=== PATIENT | male | born 1950 | race Hispanic/Latino ===

== ENCOUNTER 2018-09-05 19:51 | Emergency (ER) | payer MEDICARE ==
[~2018-09-05] VITALS: Ht 172.7 cm; Wt 75.7 kg
[2018-09-05] MEDS ORDERED: SODIUM CHLORIDE 0.9% 500ML 500 ML IV STA (20:06)
[2018-09-05] MEDS ORDERED: CEFTRIAXONE SOD 1 GM VIAL IV ONE (20:45)
[2018-09-05 20:51] LABS: BASOPHILS % 0.2 % (0.0-1.0); HEMOGLOBIN 11.1 g/dL (14.0-18.0); LYMPHOCYTES # (AUTO) 0.7 (1.0-3.2); LYMPHOCYTES % 3.4 % (18.0-39.1); MEAN CORPUSCULAR HEMOGLOBIN 28.9 pg (28-32); MEAN CORPUSCULAR HGB CONC 34.7 g/dL (31-35); MEAN CORPUSCULAR VOLUME 83.3 fL (81-99); MONOCYTES # (AUTO) 0.7 (0.2-0.8); MONOCYTES % 3.4 % (4.4-11.3); NEUTROPHILS # (AUTO) 17.8 (2.1-6.9); NEUTROPHILS % 91.5 % (38.7-80.0); PLATELET COUNT 558 x10e3/uL (140-360); RED BLOOD COUNT 3.84 x10e6/uL (4.3-5.7); RED CELL DISTRIBUTION WIDTH 12.4 % (11.7-14.4)
--- NOTE | 2018-09-05 21:40 | Diagnostic Imaging Report ---
EXAMINATION: CXR 1 VEW - [facility] INDICATION: weakness COMPARISON: None FINDINGS: AP view TUBES and LINES: None. LUNGS: Lungs are well inflated. Lungs are clear. There is no evidence of pneumonia or pulmonary edema. PLEURA: No pleural effusion or pneumothorax. HEART AND MEDIASTINUM: The cardiomediastinal silhouette is unremarkable. BONES AND SOFT TISSUES: No acute osseous lesion. Soft tissues are unremarkable. UPPER ABDOMEN: No free air under the diaphragm. IMPRESSION: No acute thoracic abnormality. Signed by: DR. Flavio Altamirano MD on 09/05/2018 9:37 PM
== END 2018-09-05 21:40 | disposition home or self-care (01) ==
LOC: FSED 19:51
DX: R53.1 Weakness (principal); A41.9 Sepsis, unspecified organism; N30.91 Cystitis, unspecified with hematuria; R35.0 Frequency of micturition; R07.89 Other chest pain; S20.212A Contusion of left front wall of thorax, initial encounter; W18.30XA Fall on same level, unspecified, initial encounter; I10 Essential (primary) hypertension; E11.9 Type 2 diabetes mellitus without complications
CPT/HCPCS: 36415; 71045; 80053; 81003; 82553; 83880; 85025; 87400; 93005; 99284; J0696; J7040

== ENCOUNTER 2019-06-12 | Observation (INO) | payer MEDICARE ==
[2019-06-12] VITALS (8 sets, daily range): BP systolic 118–193; BP diastolic 67–94
[~2019-06-12] VITALS: Ht 170.2 cm; Wt 76.2 kg
--- OUTSIDE RECORDS SUMMARY | 2019-06-12 00:03 | XMS REPORT ---
Author Author [facility] Address Unknown Phone Unavailable Care Team Providers Care Billing Department Supervisor Name Role Phone Jeremy DAVIS Unavailable Unavailable Problems This patient has no known problems. Allergies, Adverse Reactions, Alerts This patient has no known allergies or adverse reactions. Medications This patient has no known medications. Results Test Description Test Time Test Comments Text Results Atomic Results Result Comments CXR 1 [facility] 2018-09-05 21:36:00 [place] [address] Patient Name: REBECCA SMITH MR #: [id number] : 1950 Age/Sex: 68/M Req #: [id number] Adm Physician: Ordered by: PAIGE DAVIS MD Report #: [id number] Location: [facility] Room/Bed: Procedure: [id number] HOPD/CXR 1 [facility] Exam Date: 09/05/18 Exam Time: 2024 REPORT STATUS: Signed EXAMINATION: CXR 1 W - [facility] INDICATION: weakness COMPARISON: None FINDINGS: AP view TUBES and LINES: None. LUNGS: Lungs are well inflated. Lungs are clear. There is no evidence of pneumonia or pulmonary edema. PLEURA: No pleural effusion or pneumothorax. HEART AND MEDIASTINUM: The cardiomediastinal silhouette is unremarkable. BONES AND SOFT TISSUES: No acute osseous lesion. Soft tissues are unremarkable. UPPER ABDOMEN: No free air under the diaphragm. IMPRESSION: No acute thoracic abnormality. Signed by: DR. Flavio Rae MD on 09/05/2018 9:37 PM Dictated By: FLAVIO RAE MD 36 Transcribed By: ELÍAS on 09/05/182136 COPY TO: PAIGE DAVIS MD
[2019-06-12] MEDS ORDERED: ASPIRIN 325 MG TAB ONE (00:27)
[2019-06-12] MEDS ORDERED: NITROGLYCERIN 2% OINT 1 GM PKT ONE (00:27)
[2019-06-12] MEDS ORDERED: ACETAMINOPHEN 325 MG TAB PO ONE (00:30)
[2019-06-12] MEDS ORDERED: FAMOTIDINE 20 MG/2 ML VIAL IV ONE (00:30)
[2019-06-12] MEDS ORDERED: SODIUM CHLORIDE FLUSH 10 ML SYR INJ PRN (00:30)
[2019-06-12] MEDS ORDERED: ASPIRIN 81 MG CHEW TAB PO ONE (00:30)
[2019-06-12] MEDS ORDERED: ONDANSETRON HCL INJ 2MG/ML 2ML 2 MG/ML VIAL IV PRN ×2 (00:30→01:15)
[2019-06-12] MEDS ORDERED: NITROGLYCERIN 2% OINT 1 GM PKT TOP ONE (00:30)
[2019-06-12] MEDS ORDERED: ACETAMINOPHEN 325 MG TAB PO PRN (01:15)
[2019-06-12] MEDS ORDERED: ZOLPIDEM TARTRATE 5 MG TAB PO PRN (01:15)
[2019-06-12] MEDS ORDERED: DIPHENHYDRAMINE HCL INJ 50 MG/ML VIAL IV PRN (01:15)
[2019-06-12] MEDS ORDERED: ENOXAPARIN INJ 80 MG/0.8 ML SYR SC ONE (01:15)
[2019-06-12] MEDS ORDERED: MORPHINE SULFATE 2 MG/ML SYR 1ML IV PRN (01:15)
--- NOTE | 2019-06-12 01:18 | Diagnostic Imaging Report ---
EXAMINATION: CXR 1 [facility] INDICATION: Chest pressure, upper back pain COMPARISON: Chest radiograph 09/05/2018 FINDINGS: TUBES and LINES: None. LUNGS: Lungs are well inflated. Lungs are clear. There is no evidence of pneumonia or pulmonary edema. PLEURA: No pleural effusion or pneumothorax. HEART AND MEDIASTINUM: The cardiomediastinal silhouette is unremarkable. BONES AND SOFT TISSUES: No acute osseous lesion. Soft tissues are unremarkable. Degenerative changes in the spine. UPPER ABDOMEN: No free air under the diaphragm. IMPRESSION: No acute thoracic radiographic abnormality. Signed by: Giovani William DO on 06/12/2019 1:14 AM
[2019-06-12] MEDS: METOPROLOL TARTRATE 25 MG TAB PO SCH ×3 (01:29→20:50)
[2019-06-12] MEDS ORDERED: ENOXAPARIN SODIUM INJ 100 MG/ML SYR SC ONE (01:31)
[2019-06-12] MEDS ORDERED: METOPROLOL TARTRATE 50 MG TAB ONE (01:31)
--- NOTE | 2019-06-12 03:00 | NUR ---
PATIENT AOX4 NO SIGNS OF DISTRESS NOTED. PATIENT IS AMBULATORY AND HEART MONITOR IS ATTACHED AND RUNNING AT SINUS RHYTHM. PATIENT VOICES NO PAIN AND IV IS INTACT AND PATENT. BED IS LOCKED IN LOWEST POSITION, BOTH SIDE RAILS ARE UP, CALL LIGHT WITHIN EASY REACH, WILL CONTINUE TO MONITOR.
[2019-06-12] MEDS: ENALAPRILAT IV INJ 1.25 MG/ML VIAL IV PRN ×2 (06:00→11:58)
--- NOTE | 2019-06-12 06:00 | NUR ---
PAGED DR. MCDONOUGH ABOUT THE PATIENT'S DIET, AWAITING CALL BACK.
[2019-06-12] MEDS: NITROGLYCERIN 2% OINT 1 GM PKT TOP SCH ×3 (06:15→16:15)
--- NOTE | 2019-06-12 07:30 | NUR ---
Pt received in bed. Pt is aox4 and able to verbalize needs. Denies any pain at this time. Breathes are even and unlabored on room air.
[2019-06-12 08:11] LABS: CREATINE KINASE 88 IU/L (30-200)
[2019-06-12] MEDS: LISINOPRIL 10 MG TAB PO SCH (09:04)
[2019-06-12] MEDS: FAMOTIDINE 20 MG TAB PO SCH ×2 (09:04→16:15)
[2019-06-12] MEDS ORDERED: BACITRACIN 50,000 UNIT VIAL IM ONE (09:15)
--- NOTE | 2019-06-12 10:55 | NUR ---
Visit made by the Spiritual Care Department Pastoral Visitor, Denisha Stanton. PV provided prayer, hospitality, and communion. Pastoral Visitor informed pt/family of the scope of [employer] and availability. JAMES SLOAN Infectious Disease Technician Spiritual Care Department O: [phone] Pager: [phone] ([phone] number calling from)
[2019-06-12] MEDS: BACITRACIN ZINC 15 GM OINT TOP SCH (11:44)
--- NOTE | 2019-06-12 13:21 | History and Physical ---
CHIEF COMPLAINT: The patient is a 68-year-old gentleman, who came with chest pain. HISTORY OF PRESENT ILLNESS: A 68-year-old gentleman with a history of diabetes mellitus, hypertension, was in usual state of health until last night about 10 when the patient developed substernal chest pain, radiating to the neck and also to the back. The patient's chest pain lasted until he came to the emergency room, roughly about 1-2 hours. When he came to the emergency room, the patient's chest pain has subsided. The patient has been felt better with nitro patch on. PAST MEDICAL HISTORY: History of hypertension, history of diabetes mellitus, and history of hyperlipidemia. MEDICATIONS: He takes at home are zolpidem at nighttime, Zocor 40 mg, morphine sulfate, lisinopril, famotidine, enalapril, Vasotec, and also simvastatin as mentioned above. PAST SURGICAL HISTORY: History of appendectomy. No other major surgeries noted. SOCIAL HISTORY: No EtOH. No IV drug abuse. No history of smoking. FAMILY HISTORY: Contributory for coronary artery disease and also diabetes. REVIEW OF SYSTEMS: Positive for chest pain. No shortness of breath. No nausea, vomiting, or diarrhea. No constipation. No rectal bleeding. Positive for hyperesthesias and paresthesias in the upper arms and lower extremities. The patient has numbness. The patient recently had suffered a burn on the right index finger, which he has been nursing. PHYSICAL EXAMINATION: VITAL SIGNS: Temperature is 96.7, pulse of 71, respirations of 20, blood pressure is 158/88, pulse oximetry of 98% on room air. HEENT: Normocephalic, atraumatic. Pupils reactive to light and accommodation. CVS: S1 and S2 normal. Regular rate and rhythm. NECK: No JVD present. LUNGS: Clear to auscultation bilaterally. ABDOMEN: Nontender, nondistended. EXTREMITIES: No clubbing, no cyanosis, no edema. Decreased sensation in lower extremities and upper extremities. LABORATORY DATA: Serological data is not available, but troponins were negative the 1st set. IMAGING STUDIES: Chest x-ray shows no acute thoracic abnormalities. The patient's EKG from the free-standing unit and it shows no nonspecific ST-T changes. Laboratory values will be gotten from the free-standing unit, but troponins were negative. ASSESSMENT: 1. A 68-year-old gentleman with history of chest pain. 2. Hypertension. 3. Hyperlipidemia. The patient is admitted for unstable angina. Cardiac consult has been done. Echocardiogram will be done and then hopefully stress test will be done. The patient is on statins, lisinopril, and continue the same medication. Further recommendations per clinical course. Cardiac diet will be started and also wound care for the index finger will be continued. Further recommendations per clinical course and also depending on the cardiac workup. MD YOSI CabralesJ/MODL /[id number]
[2019-06-12 16:42] LABS: CREATINE KINASE 86 IU/L (30-200)
--- NOTE | 2019-06-12 19:05 | NUR ---
Completed bedside report with morning nurse. Pt alert and orient to name. Lying in bed HOB 45 degrees. Denies pain at this time. Call leal within reach. Will continue to monitor.
[2019-06-12 20:12] LABS: CHOL/HDL RATIO 2.4 (3.9-4.7)
--- NOTE | 2019-06-12 20:58 | Consultation ---
DATE OF CONSULTATION: 06/12/2019 Cardiology Consultation REQUESTING PHYSICIAN: Rodo Long MD REASON FOR CONSULTATION: Chest pain. HISTORY OF PRESENT ILLNESS: This is a 68-year-old man with history of diabetes mellitus, hypertension, hyperlipidemia, who presents with complaints of chest pain. The patient reports he began having chest pressure with radiation to the back last night. He states this is 8/10 in severity associated with shortness of breath. There was no nausea or diaphoresis. He stated he did have pain a few days prior as well, but did not seek medical attention at that time. He denied any edema, orthopnea, or PND. REVIEW OF SYSTEMS: Negative except as per HPI. PAST MEDICAL HISTORY: Diabetes mellitus, hypertension, hyperlipidemia. PAST SURGICAL HISTORY: Appendectomy. ALLERGIES: PLEASE SEE EMR. MEDICATIONS: Please see medication list. SOCIAL HISTORY: Denies alcohol or illicit drug use. Has a history of prior tobacco use, but quit in 1985. FAMILY HISTORY: Reportedly positive for coronary artery disease. PHYSICAL EXAMINATION: VITAL SIGNS: Temperature 97.8 degrees, pulse 77, respiratory rate 17, blood pressure 170/80, and oxygen saturation 98%. GENERAL: Well-developed, well-nourished man, in no acute distress. HEENT: Normocephalic, atraumatic. Pupils equal. No scleral icterus. NECK: Supple. No thyromegaly or cervical lymphadenopathy. No carotid bruits. LUNGS: Clear to auscultation bilaterally. No wheezes or crackles. CARDIOVASCULAR: Normal rate. Regular rhythm. No murmur. Normal S1, S2. ABDOMEN: Soft, nontender. EXTREMITIES: No edema. NEUROLOGIC: Nonfocal exam. LABORATORY DATA: Troponin less than 0.001. EKG normal sinus rhythm, normal ECG. Chest x-ray, no acute thoracic radiographic abnormality. IMPRESSION: 1. Chest pain. 2. Hypertension. 3. Hyperlipidemia. 4. Diabetes mellitus. RECOMMENDATIONS: 1. The patient is ruled out for myocardial infarction with serial cardiac biomarkers. Echocardiogram demonstrated normal LV size with mild concentric LVH and impaired relaxation. Given risk factors, plan to proceed with evaluation with nuclear stress test. Further recommendations pending test results. 2. Monitor the patient on telemetry. 3. Check fasting lipid panel. 4. Resume home antihypertensive therapies. 5. Likely to need further titration of blood pressure medication. Thank you for this consult. We will continue to follow. MD BREE Elizabeth/LUCHO /[id number]
[2019-06-12] MEDS ORDERED: METFORMIN HCL500 MG PO (21:00)
[2019-06-12] MEDS ORDERED: SIMVASTATIN 40 MG TAB PO SCH (21:00)
[2019-06-13] VITALS (7 sets, daily range): BP systolic 140–195; BP diastolic 66–91
[2019-06-13] MEDS: NITROGLYCERIN 2% OINT 1 GM PKT TOP SCH ×4 (05:46→17:39)
--- NOTE | 2019-06-13 07:28 | NUR ---
Pt received in bed with eyes open. Pt is aox4 and able to verbalize needs. Denies any pain at this time. Pt is NPO at this time for stress test. Dr. Long was here this am to see pt and states that pt can discharge if stress is normal. He is to continue with same home medications for discharge.
[2019-06-13] MEDS: METOPROLOL TARTRATE 25 MG TAB PO SCH (07:55)
--- NOTE | 2019-06-13 08:06 | Progress Note ---
DATE: SUBJECTIVE: The patient is a 68-year-old gentleman with history of diabetes mellitus, hypertension, came with hypertensive crisis and also chest pain. Currently, the patient is feeling better, little stressed about the stress test to happen today. Echocardiogram showed diastolic dysfunction, EF of 50% to 60%. Diastolic filling pattern indicates impaired relaxation. OBJECTIVE: VITAL SIGNS: Temperature is 97.0, respirations of 20, pulse of 68, blood pressure 160/82, pulse oximetry of 97% on room air. HEENT: Normocephalic, atraumatic. Pupils reactive to light and accommodation. CVS: S1 and S2 normal. Regular rate and rhythm. ABDOMEN: Nontender, nondistended. EXTREMITIES: No clubbing, no cyanosis, no edema. LABORATORY VALUES: Triglycerides 191, LDL was 35, HDL was 52 with a ratio of 2.4. Hemoglobin A1c was 5.5 and TSH of 1.89. ASSESSMENT: A 68-year-old gentleman with: 1. Hypertensive crisis. 2. Chest pain. 3. Hyperlipidemia. 4. History of diabetes mellitus, impaired fasting glucose tolerance. 5. History of anxiety. PLAN: Continue with treadmill. Plan today, the patient can be discharged if the treadmill is negative. Up titrate the blood pressure medications and continue with his antidiabetic medications at this time. Further recommendation per clinical course. We will continue to monitor the patient. MD ARRON Cabrales/LUIS EL /[id number]
[2019-06-13] MEDS: FAMOTIDINE 20 MG TAB PO SCH ×2 (08:22→17:54)
[2019-06-13] MEDS: LISINOPRIL 10 MG TAB PO SCH (08:23)
[2019-06-13] MEDS: BACITRACIN ZINC 15 GM OINT TOP SCH (09:00)
[2019-06-13] MEDS ORDERED: REGADENOSON 0.4 MG/5 ML SYR IV ONE (10:08)
[2019-06-13] MEDS: ENALAPRILAT IV INJ 1.25 MG/ML VIAL IV PRN (10:38)
--- NOTE | 2019-06-13 11:47 | NUR ---
Pt BP is 187/83 on the dinamap and 190/[address] Peña to let her know of elevated blood pressure and waiting for call back. Called and spoke with better. and let them know aswell. [facility] states they will call Dr. Peña and try to get orders aswell. [employer] was able to speak with Dr. Peña and states its ok to do stress test but they will change to chemical instead of treadmill.
[2019-06-13] MEDS ORDERED: LISINOPRIL40 MG PO (15:40)
[2019-06-13] MEDS ORDERED: PRAVASTATIN SOD40 MG PO (15:40)
[2019-06-13] MEDS ORDERED: AMLODIPINE BESY10 MG PO (15:40)
[2019-06-13] MEDS ORDERED: LOSARTAN POTAS100 MG PO (15:40)
[2019-06-13] MEDS ORDERED: CLONIDINE HCL0.1 MG PO (15:40)
[2019-06-13] MEDS ORDERED: ONDANSETRON HCL 4 MG ORAL DISINTEGRATING TAB PO PRN (16:30)
--- NOTE | 2019-06-13 17:03 | Myoview Stress Test ---
DATE OF STUDY: 06/12/2019 13:42:00 Stress Test - Treadmill ONLY PROCEDURE TITLE: Rest/stress single isotope SPECT imaging with pharmacologic stress and gated SPECT imaging. INDICATION: Chest pain. PROCEDURE IN DETAIL: Pharmacologic stress testing was performed with regadenoson per protocol. The heart rate was 66 beats per minute at rest and increased to 109 beats per minute during the regadenoson infusion. Resting blood pressure was 159/86 mmHg and increased to 166/75 mmHg, which is a normal response. Resting electrocardiogram demonstrated normal sinus rhythm. There were diffuse ST-segment depressions noted during the regadenoson infusion. Myocardial perfusion imaging was performed at rest following the injection of 11 mCi of tetrofosmin. At peak pharmacological effect, the patient was injected with 33 mCi of tetrofosmin. Gated post-stress tomographic imaging was performed. FINDINGS: The overall quality of study is fair. Left ventricular cavity is noted to be normal size on the rest and stress studies. SPECT images demonstrate homogeneous tracer distribution throughout the myocardium. Gated SPECT imaging reveals normal myocardial thickening and wall motion. The left ventricular ejection fraction was calculated to be greater than 70%. IMPRESSION: Myocardial perfusion imaging is normal false-positive Lexiscan ECG stress test in light of normal perfusion imaging. Overall left ventricular systolic function was normal without regional wall motion abnormalities. Molly Arnett MD ABS/MODL /[id number]
[2019-06-13] MEDS ORDERED: CLONIDINE HCL 0.1 MG TAB PO SCH (18:00)
[2019-06-13] MEDS ORDERED: LOSARTAN POTASSIUM 100 MG TAB PO SCH (18:00)
[2019-06-13] MEDS ORDERED: AMLODIPINE BESYLATE 10 MG TAB PO SCH (18:00)
--- NOTE | 2019-06-13 18:40 | NUR ---
Spoke with Dr. Long this afternoon to restart blood pressure medications from home and to give dose right now. Dr. Brandon here to see pt and states that stress test was negative and pt is able to go home if Blood pressure is ok. He is to continue same home medications and follow up with PCP in one week.
--- NOTE | 2019-06-13 19:05 | NUR ---
Report received from morning nurse. Pt sitting in chair awaiting discharge instructions. Informed to call transportation to take him home. Denies pain at this time. Call leal within reach.
--- NOTE | 2019-06-13 20:00 | NUR ---
Pt transported to vehicle via w/c. 18g IV removed right FA, Pt tolerated well. Pt received discharge instructions. Pt/family verbalized understanding. Pt denies pain at this time. No acute distress noted.
--- NOTE | 2019-06-14 02:06 | Progress Note ---
DATE: 06/13/2019 Cardiology Progress Note SUBJECTIVE: The patient denies chest pain or shortness of breath. He was seen for nuclear stress test. OBJECTIVE: VITAL SIGNS: Temperature 97 degrees, pulse 62, respiratory rate 17, blood pressure 187/80, and oxygen saturation 97%. GENERAL: Awake, alert, in no acute distress. LUNGS: Clear to auscultation bilaterally. No wheezes or crackles. CARDIOVASCULAR: Normal rate. Regular rhythm. No murmur. Normal S1, S2. ABDOMEN: Soft, nontender. EXTREMITIES: No edema. CARDIAC MEDICATIONS: Losartan 100 mg p.o. daily, amlodipine 10 mg p.o. daily, lisinopril 10 mg p.o. daily, metoprolol tartrate 25 mg p.o. q.12 hours. LABORATORY DATA: None today. TELEMETRY: Normal sinus rhythm IMPRESSION: 1. Chest pain. 2. Hypertension. 3. Hyperlipidemia. 4. Diabetes mellitus. RECOMMENDATIONS: The patient is ruled out for myocardial infarction with serial cardiac biomarkers. Nuclear stress test was without evidence of ischemia. Resume home blood pressure medications. However, it appears he is on both lisinopril and losartan. We would recommend discontinuation of lisinopril at this time and addition of carvedilol for a blood pressure control. This can be further adjusted without antihypertensive therapy as an outpatient. Thank you for this consult. We will continue to follow. Molly Arnett MD ABS/MODL /[id number]
[2019-06-14] MEDS ORDERED: METFORMIN HCL 500 MG TAB PO SCH (09:00)
== END 2019-06-13 20:00 | disposition home or self-care (01) ==
LOC: FSED → ERHOLD 00:20 → MED/SURG3 01:45
PROVIDERS: ADMIT Family Medicine; ATTEND Family Medicine
DX: R07.89 Other chest pain (principal); I10 Essential (primary) hypertension; E11.9 Type 2 diabetes mellitus without complications; E78.5 Hyperlipidemia, unspecified; Z87.891 Personal history of nicotine dependence; Z83.3 Family history of diabetes mellitus; Z82.49 Family history of ischemic heart disease and other diseases of the circulatory system; I16.9 Hypertensive crisis, unspecified; F41.9 Anxiety disorder, unspecified; Z79.84 Long term (current) use of oral hypoglycemic drugs
CPT/HCPCS: 36415 ×2; 71045; 78452; 80048; 80061; 80076; 82550; 82553; 82948 ×2; 83036; 83690; 84443; 84484; 85025; 93005; 93017; 93306; 99284; A9502; G0378 ×2; J1650; J2785

== ENCOUNTER → 2019-10-16 | Day surgery (SDC) | payer MEDICARE ==
[2019-10-15 13:04] LABS: BASOPHILS # (AUTO) 0.1 (0.0-0.1); BASOPHILS % 0.7 % (0.0-1.0); EOSINOPHILS # (AUTO) 0.1 (0.0-0.4); EOSINOPHILS % 0.9 % (0.0-6.0); HEMATOCRIT 38.1 % (38.2-49.6); HEMOGLOBIN 13.4 g/dL (14.0-18.0); LYMPHOCYTES # (AUTO) 2.4 (1.0-3.2); MEAN CORPUSCULAR HEMOGLOBIN 30.2 pg (28-32); MEAN CORPUSCULAR HGB CONC 35.2 g/dL (31-35); MEAN CORPUSCULAR VOLUME 85.8 fL (81-99); MONOCYTES # (AUTO) 0.6 (0.2-0.8); NEUTROPHILS # (AUTO) 5.8 (2.1-6.9); PLATELET COUNT 280 x10e3/uL (140-360); RED BLOOD COUNT 4.44 x10e6/uL (4.3-5.7); RED CELL DISTRIBUTION WIDTH 12.4 % (11.7-14.4)
[~2019-10-16] MED LIST: AMLODIPINE BESY10 MG PO; CLONIDINE HCL0.1 MG PO; FENTANYL CITRATE/PF 100MCG/2 ML INJ ONE; FLOMAX0.4 MG PO; LISINOPRIL40 MG PO; LOSARTAN POTAS100 MG PO; METFORMIN HCL500 MG PO; MIDAZOLAM HCL 2 MG/2 ML VIAL ONE; PRAVASTATIN SOD40 MG PO; PROPOFOL IV EMULSION 10 MG/ML 20 ML VIAL ONE
[2019-10-16 12:35] VITALS: BP 106/75
--- NOTE | 2019-10-16 19:08 | Operative Report ---
DATE OF PROCEDURE: SURGEON: Mayito Waldrop MD PROCEDURES: Flexible sigmoidoscopy with piecemeal polypectomy, hot biopsies, and hemoclipping x3 of rectal lesion. INDICATIONS FOR PROCEDURE: History of rectal lesion with high-grade dysplasia. MEDICATIONS: The patient was done under MAC, please see anesthesiologist's note. PROCEDURE IN DETAIL: With the patient in the left lateral decubitus position, a flexible fiberoptic Olympus colonoscope was introduced into the anus and advanced to the proximal rectum. An approximately 1.8 cm the previously described sessile lesion was identified and it was removed per piecemeal electrocautery and hot biopsy forceps. Polypectomy site was then hemoclipped x3 with excellent hemostasis. The scope was then retroflexed into the distal rectum and small internal hemorrhoids were noted, none of which was actively bleeding. The scope was then straightened out, it was subsequently withdrawn, and the patient tolerated the procedure well. IMPRESSION: 1. Approximately 1.8 cm sessile lesion in proximal rectum removed per piecemeal polypectomy, hot biopsy forceps, site hemoclipped x3. 2. Internal hemorrhoids, none actively bleeding. PLAN: Follow up histology. If margins of lesion are not clear, then the patient will need a transanal excision. Mayito Waldrop MD [facility]/MODL /[id number] cc: MD Sonido Caldera MD
== END | disposition home or self-care (01) ==
LOC: ENDO 09:24
PROVIDERS: ATTEND Internal Medicine Gastroenterology
DX: D12.8 Benign neoplasm of rectum (principal); K63.5 Polyp of colon; K57.30 Diverticulosis of large intestine without perforation or abscess without bleeding; K64.8 Other hemorrhoids; I10 Essential (primary) hypertension; E11.9 Type 2 diabetes mellitus without complications; K21.9 Gastro-esophageal reflux disease without esophagitis; E78.00 Pure hypercholesterolemia, unspecified; Z87.891 Personal history of nicotine dependence; Z01.810 Encounter for preprocedural cardiovascular examination; Z01.812 Encounter for preprocedural laboratory examination
CPT/HCPCS: 36415 ×2; 45333; 82948; 85025; 93005; J2250; J2704; J3010; 45330

== ENCOUNTER → 2020-02-03 | Day surgery (SDC) | payer MEDICARE, OTHER ==
[2020-01-30 13:56] LABS: BASOPHILS % 0.4 % (0.0-1.0); EOSINOPHILS # (AUTO) 0.1 (0.0-0.4); EOSINOPHILS % 0.6 % (0.0-6.0); HEMATOCRIT 37.1 % (38.2-49.6); LYMPHOCYTES # (AUTO) 1.7 (1.0-3.2); LYMPHOCYTES % 21.8 % (18.0-39.1); MEAN CORPUSCULAR HEMOGLOBIN 30.2 pg (28-32); MEAN CORPUSCULAR VOLUME 86.3 fL (81-99); MONOCYTES # (AUTO) 0.6 (0.2-0.8); MONOCYTES % 7.7 % (4.4-11.3); NEUTROPHILS # (AUTO) 5.3 (2.1-6.9); NEUTROPHILS % 69.2 % (38.7-80.0); PLATELET COUNT 244 x10e3/uL (140-360); RED CELL DISTRIBUTION WIDTH 12.6 % (11.7-14.4)
[~2020-02-03] MED LIST changes: +EPHEDRINE SULFATE INJ 50 MG/ML VIAL ONE; +HYOSCYAMINE 0.125 MG TAB ONE; -MIDAZOLAM HCL 2 MG/2 ML VIAL ONE
--- NOTE | 2020-02-03 15:53 | Operative Report ---
DATE OF PROCEDURE: 02/03/2020 SURGEON: Mayito Waldrop MD PROCEDURE: Flexible sigmoidoscopy with polypectomy and biopsies. INDICATIONS FOR PROCEDURE: History of polypoid lesion, proximal rectum with high-grade dysplasia. MEDICATIONS: The patient was done under MAC, please see anesthesiologist's note. PROCEDURE IN DETAIL: With the patient in left lateral decubitus position, a flexible fiberoptic Olympus colonoscope was inserted into the rectum with ease and advanced to the proximal rectum. Previous polypectomy site was noted and that was biopsied. A minute residual polypoid lesion was also noted just adjacent to the polypectomy site that was removed per snare electrocautery. The scope was then withdrawn back into the distal rectum, retroflexed and some small internal hemorrhoids were noted, none of which was actively bleeding. The scope was then straightened out, it was subsequently withdrawn. The patient tolerated the procedure well. The procedure was done in the presence of Dr. Richmond Nash. IMPRESSION: 1. Residual polypoid tissue, hot snared. 2. Previous polypectomy site, biopsied. 3. Internal hemorrhoids, none actively bleeding. PLAN: Follow up histology. If histology is still consistent with dysplasia, the patient will undergo a transanal excision of the aforementioned lesion. Timing of followup colonoscopy pending pathology report. Mayito Waldrop MD [facility] /[id number] cc: MD Richmond Smith MD
[2020-02-03 15:55] VITALS: BP 146/81
== END | disposition home or self-care (01) ==
LOC: OR 12:30
PROVIDERS: ATTEND Internal Medicine Gastroenterology
DX: K62.89 Other specified diseases of anus and rectum (principal); K62.1 Rectal polyp; K64.8 Other hemorrhoids; K21.9 Gastro-esophageal reflux disease without esophagitis; E11.9 Type 2 diabetes mellitus without complications; I10 Essential (primary) hypertension; Z88.6 Allergy status to analgesic agent; Z01.810 Encounter for preprocedural cardiovascular examination; Z01.812 Encounter for preprocedural laboratory examination; Z11.59 Encounter for screening for other viral diseases
CPT/HCPCS: 36415 ×2; 45380; 45385; 82948; 85025; 87635; 88305; 93005; J2704; J3010; 45330

== ENCOUNTER 2020-03-23 13:02 | Emergency (ER) | payer MEDICARE, OTHER ==
[~2020-03-23] VITALS: Ht 170.2 cm; Wt 65.5 kg
[~2020-03-23 13:02] MED LIST changes: -EPHEDRINE SULFATE INJ 50 MG/ML VIAL ONE; -FENTANYL CITRATE/PF 100MCG/2 ML INJ ONE; -HYOSCYAMINE 0.125 MG TAB ONE; -PROPOFOL IV EMULSION 10 MG/ML 20 ML VIAL ONE
[2020-03-23] MEDS ORDERED: LOSARTAN-HCTZ1 EAC1 (13:25)
[2020-03-23] MEDS ORDERED: NIFEDIPINE ER30 M1 (13:25)
--- OUTSIDE RECORDS SUMMARY | 2020-03-23 13:37 | XMS REPORT | Continuity of Care Document ---
Author Author [facility] t Organization [facility] Address [address] [place] [address] Phone Unavailable Care Team Providers Care Social Insurance Administrator Name Role Phone LESLI CARR MD PCP Maru MCDONOUGH Attphys Unavailable Jeremy DAVIS Attphys Unavailable aMru MCDONOUGH Admphys Unavailable Payers Payer Name Policy Type Policy Number Effective Date Expiration Date Maru mata [employer] Medicare Replacement [id number] 2018 00:00:00 [facility] Well[employer] Medicare Advantage [id number] 2018 00:00:00 [facility] Problems Condition Name Condition Details Condition Category Status Onset Date Resolution Date Last Treatment Date Treating Clinician Comments Source Acute coronary syndrome Acute coronary syndrome Problem Active [facility] Hypertensive urgency Hypertensive urgency Problem Active [facility] Allergies, Adverse Reactions, Alerts This patient has no known allergies or adverse reactions. Medications Ordered Medication Name Filled Medication Name Start Date Stop Da te Current Medication? Ordering Clinician Indication Dosage Frequency Signature (SIG) Comments Components Source Amlodipine Besylate 10 Mg Tablet Amlodipine Besylate 10 Mg Tablet Yes 10 Daily [facility] Clonidine Hcl 0.1 Mg Tablet Clonidine Hcl 0.1 Mg Tablet Yes 1 Twice A Day [facility] Lisinopril 40 Mg Tablet Lisinopril 40 Mg Tablet Yes Daily [facility] Losartan Potassium 100 Mg Tablet Losartan Potassium 100 Mg Tablet Yes 100 Daily [facility] Metformin Hcl 500 Mg Tablet Metformin Hcl 500 Mg Tablet Yes 500 Twice A Day [facility] Pravastatin Sodium 40 Mg Tablet Pravastatin Sodium 40 Mg Tablet Yes Daily [facility] Procedures This patient has no known procedures. Encounters Start Date/Time End Date/Time Encounter Type Admission Type [facility] Care Department Encounter ID Source 2019-06-12 00:20:00 2019-06-13 20:00:00 Discharged Inpatient (obs) 1 TEENA MCDONOUGH [facility] [id number] [facility] 2018-09-05 19:51:00 2018-09-05 21:40:00 Departed Emergency Room 1 PAIGE DAVIS [facility] [id number] [facility] Results Test Description Test Time Test Comments Results Result Comments Source Stress Test - Treadmill ONLY 2019-06-13 14:28:00 [place] [address] Patient Name : REBECCA SMITH MR #: [id number] : 1950 Age/Sex: 68/M Adm Physician : TEENA MCDONOUGH MD Admit Date : 06/12/19 Location : MED/SURG3 Room/Bed : [facility] REPORT: Myoview Stress Test DATE OF STUDY: 06/12/2019 13:42:00 Stress Test - Treadmill ONLY PROCEDURE TITLE: Rest/stress single isotope SPECT imaging with pharmacologic stress and gated SPECT imaging. INDICATION: Chest pain. PROCEDURE IN DETAIL: Pharmacologic stress testing was performed with regadenoson per protocol. The heart rate was 66 beats per minute at rest and increased to 109 beats per minute during the regadenoson infusion. Resting blood pressure was 159/86 mmHg and increased to 166/75 mmHg, which is a normal response. Resting electrocardiogram demonstrated normal sinus rhythm. There were diffuse ST-segment depressions noted during the regadenoson infusion. Myocardial perfusion imaging was performed at rest following the injection of 11 mCi of tetrofosmin. At peak pharmacological effect, the patient was injected with 33 mCi of tetrofosmin. Gated post-stress tomographic imaging was performed. FINDINGS: The overall quality of study is fair. Left ventricular cavity is noted to be normal size on the rest and stress studies. SPECT images demonstrate homogeneous tracer distribution throughout the myocardium. Gated SPECT imaging reveals normal myocardial thickening and wall motion. The left ventricular ejection fraction was calculated to be greater than 70%. IMPRESSION: Myocardial perfusion imaging is normal. False- positive Lexiscan ECG stress test in light of normal perfusion imaging. Overall left ventricular systolic function was normal without regional wall motion abnormalities. Molly Arnett MD ABS/LUCHO /[id number] Signature Date Dictated By: MOLLY ARNETT MD Transcribed By: MODL on 06/13/19 <Electronically signed by MOLLY ARNETT MD><<Signature on File>>06/30/19 [id number] COPY TO: Bedside Glucose 2019-06-13 07:27:00 Test Item Bedside Glucose (test code = 32891-7) 106 70-120 Meter ID: [id number]neyTriglycerides Level 2019-06-12 20:14:00* Test Item Value Reference Range Interpretation Comments Triglycerides Level (test code = 2571-8) 191 0-149 H [facility]neyCholesterol Bpkqv7313-99-01 20:14:00* Test Item Value Reference Range Interpretation Comments Cholesterol Level (test code = 2093-3) 125 0-199 Less than 200 mg/dL Low Drlm946 - 239 mg/dL Borderline Tczx034 m g/dl and greater High Risk [facility] McKinneyLDL Foyrpngatwa8193-84-08 20:14:00* Test Item Value Reference Range Interpretation Comments LDL Cholesterol (test code = 2089-1) 35 60-130 L [facility] McKinneyHDL Qqspyazhpiu0464-88-83 20:14:00* Test Item Value Reference Range Interpretation Comments HDL Cholesterol (test code = 2085-9) 52 40-60 [facility]neyCholesterol/HDL Pmnga4042-26-24 20:14:00 * Test Item Value Reference Range Interpretation Comments Cholesterol/HDL Ratio (test code = 9830-1) 2.4 3.9-4.7 L [facility] McKinneyCreatine Kinase [id number] 16:55:00* Test Item Value Reference Range Interpretation Comments Creatine Kinase MB (test code = 95046-9) 2.40 0-5.0 [facility] McKinneyTroponin [id number] 16:55:00* Test Item Value Reference Range Interpretation Comments Troponin I (test code = VZM3649) < 0.001 0-0.300 [facility]neyCreatine Skythc9673-83-56 16:43:00* Test Item Value Reference Range Interpretation Comments Creatine Kinase (test code = 2157-6) 86 30-200 [facility] McKinneyThyroid Stimulating Hormone (TSH) 2019-06-12 09:20:00* Test Item Value Reference Range Interpretation Comments Thyroid Stimulating Hormone (TSH) (test code = 08675-2) 1.899 0.350-4.940 [facility] McKinneyHemoglobin A1c Cdlrlkb4764-77-33 08:26:00 * Test Item Value Reference Range Interpretation Comments Hemoglobin A1c Percent (test code = Hemoglobin A1c Percent) 5.5 4.0-7.0 [facility] McKinneyLipase2019-10-30 08:26:00* Test Item Value Reference Range Interpretation Comments Lipase (test code = 3040-3) 51 8-78 [facility]neyCXR 1 VEW - IKYE6903-18-18 01:13:00 [place] [address] Patient Name: REBECCA SMITH MR #: [id number] : 1950 Age/Sex: 68/M Req #: [id number] Adm Physician: TEENA MCDONOUGH MD Ordered by: PAIGE DAVIS MD Report #: [id number] Location: [facility] Room/Bed: [facility]-1 Procedure: [id number] HOP D/CXR 1 VEW - HOPD Exam Date: 06/12/19 Exam Time: 00 25 REPORT STATUS: Signed EXAMINA TION: CXR 1 [facility] INDICATION: Chest pressure, upper back pain COMPARISON: Chest radiograph 09/05/2018 FINDINGS: TUBES and LINE S: None. LUNGS: Lungs are well inflated. Lungs are clear. There is no e vidence of pneumonia or pulmonary edema. PLEURA: No pleural effusion or pneumothorax. HEART AND MEDIASTINUM: The cardiomediastinal silhouette is u nremarkable. BONES AND SOFT TISSUES: No acute osseous lesion. Soft ti ssues are unremarkable. Degenerative changes in the spine. UPPER ABDOMEN: No free air under the diaphragm. IMPRESSION: No acute thoracic r adiographic abnormality. Signed by: Giovani William DO on 06/12/2019 1:14 A M Dictated By: GIOVANI WILLIAM DO 3 Transcribed By: ELÍAS on 06/12/19113 COPY T O: PAIGE DAVIS MD CXR 1 [facility] - [id number] 21:36:00 [place] [address] Patient Name: REBECCA SMITH MR #: [id number] : 1950 Age/Sex: 68/M Req #: [id number] Adm Physician: Ordered by: PAIGE DAVIS MD Report #: [id number] Location: [facility] Room/Bed: Procedure: [id number] HOPD/ CXR 1 VEW - HOPD Exam Date: 09/05/18 Exam Time: 2024 REPORT STATUS: Signed EXAMINATI ON: CXR 1 VEW - HOPD INDICATION: weakness COMPARISON: None FINDINGS: AP view TUBES and LINES: None. LUNGS: Lungs are well inflated. Lungs are clear. There is no evidence of pneumonia or pulmo nary edema. PLEURA: No pleural effusion or pneumothorax. HEART AND ME DIASTINUM: The cardiomediastinal silhouette is unremarkable. BONES AND SOFT TISSUES: No acute osseous lesion. Soft tissues are unremarkable. UPPER ABDOMEN: No free air under the diaphragm. IMPRESSION: No acute thoracic abnormality. Signed by: DR. Flavio Rae MD on 09/05/2018 9:37 PM Dictated By: FLAVIO RAE MD 36 Transcribed By: ELÍAS on 09/05/182136 COPY TO: PAIGE DAVIS MD White Blood Epvln3252-94-68 20:57:00* Test Item Value Reference Range Interpretation Comments White Blood Count (test code = 6690-2) 19.47 4.8-10.8 H [facility]neyRed Blood Tfhav1004-46-43 20:57:00* Test Item Value Reference Range Interpretation Comments Red Blood Count (test code = 789-8) 3.84 4.3-5.7 L [facility] McKinneyHemoglobin2019-01-23 20:57:00* Test Item Value Reference Range Interpretation Comments Hemoglobin (test code = 12439-7) 11.1 14.0-18.0 L [facility] McKinneyHematocrit2019-01-23 20:57:00* Test Item Value Reference Range Interpretation Comments Hematocrit (test code = 4544-3) 32.0 38.2-49.6 L [facility] McKinneyMean Corpuscular Oraiia1370-03-67 20:57:00* Test Item Value Reference Range Interpretation Comments Mean Corpuscular Volume (test code = 787-2) 83.3 81-99 [facility] McKinneyMean Corpuscular Zinwzqipyz9903-64-01 20:57:00* Test Item Value Reference Range Interpretation Comments Mean Corpuscular Hemoglobin (test code = 785-6) 28.9 28-32 [facility] McKinneyMean Corpuscular Hemoglobin Concent 2018-09-05 20:57:00* Test Item Value Reference Range Interpretation Comments Mean Corpuscular Hemoglobin Concent (test code = 786-4) 34.7 31-35 [facility] McKinneyRed Cell Distribution Bcmtg5217-94-52 20:57:00* Test Item Value Reference Range Interpretation Comments Red Cell Distribution Width (test code = 04951-2) 12.4 11.7 -14.4 [facility] McKinneyPlatelet Yeemq3630-74-01 20:57:00* Test Item Value Reference Range Interpretation Comments Platelet Count (test code = 777-3) 558 140-360 H [facility] McKinneyNeutrophils (%) (Auto)2018-09-05 20:57:00 * Test Item Value Reference Range Interpretation Comments Neutrophils (%) (Auto) (test code = 39366-8) 91.5 38.7-80.0 H [facility] McKinneyLymphocytes (%) (Auto)2018-09-05 20:57:00 * Test Item Value Reference Range Interpretation Comments Lymphocytes (%) (Auto) (test code = 736-9) 3.4 18.0-39.1 L [facility] McKinneyMonocytes (%) (Auto)2018-09-05 20:57:00* Test Item Value Reference Range Interpretation Comments Monocytes (%) (Auto) (test code = 5905-5) 3.4 4.4-11.3 L [facility]neyEosinophils (%) (Auto)2018-09-05 20:57:00 * Test Item Value Reference Range Interpretation Comments Eosinophils (%) (Auto) (test code = 713-8) 0.0 0.0-6.0 [facility] McKinneyBasophils (%) (Auto)2018-09-05 20:57:00* Test Item Value Reference Range Interpretation Comments Basophils (%) (Auto) (test code = 706-2) 0.2 0.0-1.0 [facility] McKinneyIM GRANULOCYTES %2018-09-05 20:57:00* Test Item Value Reference Range Interpretation Comments IM GRANULOCYTES % (test code = IM GRANULOCYTES %) 1.5 0.0- 1.0 H [facility] McKinneyNeutrophils # (Auto)2018-09-05 20:57:00* Test Item Value Reference Range Interpretation Comments Neutrophils # (Auto) (test code = 751-8) 17.8 2.1-6.9 H [facility] McKinneyLymphocytes # (Auto)2018-09-05 20:57:00* Test Item Value Reference Range Interpretation Comments Lymphocytes # (Auto) (test code = 84284-8) 0.7 1.0-3.2 L [facility] McKinneyMonocytes # (Auto)2018-09-05 20:57:00* Test Item Value Reference Range Interpretation Comments Monocytes # (Auto) (test code = 742-7) 0.7 0.2-0.8 [facility]neyEosinophils # (Auto)2018-09-05 20:57:00* Test Item Value Reference Range Interpretation Comments Eosinophils # (Auto) (test code = 711-2) 0.0 0.0-0.4 [facility]neyBasophils # (Auto)2018-09-05 20:57:00* Test Item Value Reference Range Interpretation Comments Basophils # (Auto) (test code = 704-7) 0.0 0.0-0.1 [facility] McKinneyAbsolute Immature Granulocyte (auto 2018-09-05 20:57:00* Test Item Value Reference Range Interpretation Comments Absolute Immature Granulocyte (auto (annie t code = Absolute Immature Granulocyte (auto) 0.30 0-0.1 H [facility] McKinneyWhite Blood Zolid9682-74-53 20:57:00* Test Item Value Reference Range Interpretation Comments White Blood Count (test code = 6690-2) 19.47 4.8-10.8 H [facility] McKinneyRed Blood Solls3091-32-90 20:57:00* Test Item Value Reference Range Interpretation Comments Red Blood Count (test code = 789-8) 3.84 4.3-5.7 L [facility] McKinneyHemoglobin2019-01-23 20:57:00* Test Item Value Reference Range Interpretation Comments Hemoglobin (test code = 61919-6) 11.1 14.0-18.0 L [facility] McKinneyHematocrit2019-01-23 20:57:00* Test Item Value Reference Range Interpretation Comments Hematocrit (test code = 4544-3) 32.0 38.2-49.6 L [facility] McKinneyMean Corpuscular Srxvvy7425-54-29 20:57:00* Test Item Value Reference Range Interpretation Comments Mean Corpuscular Volume (test code = 787-2) 83.3 81-99 [facility] McKinneyMean Corpuscular Zrldioleov6262-40-63 20:57:00* Test Item Value Reference Range Interpretation Comments Mean Corpuscular Hemoglobin (test code = 785-6) 28.9 28-32 [facility] McKinneyMean Corpuscular Hemoglobin Concent 2018-09-05 20:57:00* Test Item Value Reference Range Interpretation Comments Mean Corpuscular Hemoglobin Concent (test code = 786-4) 34.7 31-35 [facility] McKinneyRed Cell Distribution Pxqxc0812-35-50 20:57:00* Test Item Value Reference Range Interpretation Comments Red Cell Distribution Width (test code = 39928-8) 12.4 11.7 -14.4 [facility] McKinneyPlatelet Lzfjf9434-65-48 20:57:00* Test Item Value Reference Range Interpretation Comments Platelet Count (test code = 777-3) 558 140-360 H [facility] McKinneyNeutrophils (%) (Auto)2018-09-05 20:57:00 * Test Item Value Reference Range Interpretation Comments Neutrophils (%) (Auto) (test code = 51997-2) 91.5 38.7-80.0 H [facility] McKinneyLymphocytes (%) (Auto)2018-09-05 20:57:00 * Test Item Value Reference Range Interpretation Comments Lymphocytes (%) (Auto) (test code = 736-9) 3.4 18.0-39.1 L [facility] McKinneyMonocytes (%) (Auto)2018-09-05 20:57:00* Test Item Value Reference Range Interpretation Comments Monocytes (%) (Auto) (test code = 5905-5) 3.4 4.4-11.3 L [facility] McKinneyEosinophils (%) (Auto)2018-09-05 20:57:00 * Test Item Value Reference Range Interpretation Comments Eosinophils (%) (Auto) (test code = 713-8) 0.0 0.0-6.0 [facility] McKinneyBasophils (%) (Auto)2018-09-05 20:57:00* Test Item Value Reference Range Interpretation Comments Basophils (%) (Auto) (test code = 706-2) 0.2 0.0-1.0 [facility] McKinneyIM GRANULOCYTES %2018-09-05 20:57:00* Test Item Value Reference Range Interpretation Comments IM GRANULOCYTES % (test code = IM GRANULOCYTES %) 1.5 0.0- 1.0 H [facility] McKinneyNeutrophils # (Auto)2018-09-05 20:57:00* Test Item Value Reference Range Interpretation Comments Neutrophils # (Auto) (test code = 751-8) 17.8 2.1-6.9 H [facility] McKinneyLymphocytes # (Auto)2018-09-05 20:57:00* Test Item Value Reference Range Interpretation Comments Lymphocytes # (Auto) (test code = 21510-8) 0.7 1.0-3.2 L [facility] McKinneyMonocytes # (Auto)2018-09-05 20:57:00* Test Item Value Reference Range Interpretation Comments Monocytes # (Auto) (test code = 742-7) 0.7 0.2-0.8 [facility] McKinneyEosinophils # (Auto)2018-09-05 20:57:00* Test Item Value Reference Range Interpretation Comments Eosinophils # (Auto) (test code = 711-2) 0.0 0.0-0.4 [facility] McKinneyBasophils # (Auto)2018-09-05 20:57:00* Test Item Value Reference Range Interpretation Comments Basophils # (Auto) (test code = 704-7) 0.0 0.0-0.1 [facility] McKinneyAbsolute Immature Granulocyte (auto 2018-09-05 20:57:00* Test Item Value Reference Range Interpretation Comments Absolute Immature Granulocyte (auto (annie t code = Absolute Immature Granulocyte (auto) 0.30 0-0.1 H [facility]
[2020-03-23] MEDS ORDERED: POTASSIUM CHLORIDE 20 MEQ TAB CR PO STA (13:46)
--- NOTE | 2020-03-23 13:56 | Diagnostic Imaging Report ---
EXAMINATION: CXR 1 [facility] INDICATION: Shortness of breath COMPARISON: Chest radiograph 06/12/2019 FINDINGS: LINES/TUBES:EKG leads overlie the chest. LUNGS:The lungs are well-inflated. No focal consolidation or pulmonary edema. PLEURA:No pleural effusion or pneumothorax. MEDIASTINUM:The cardiomediastinal silhouette appears normal in size and shape. BONES/SOFT TISSUES:No acute osseous injury. ABDOMEN:No free air under the diaphragm. IMPRESSION: No focal pneumonia or pulmonary edema. Signed by: Olamide Feng MD on 03/23/2020 1:52 PM
[2020-03-23] MEDS ORDERED: POTASSIUM CHLORIDE 20 MEQ TAB CR PO ONE (13:57)
--- NOTE | 2020-03-23 14:17 | Diagnostic Imaging Report ---
EXAMINATION: Head CT HISTORY: Altered mental status for the last 3 days, numbness, dyspnea COMPARISON: None. TECHNIQUE: Helical axial images of the head were obtained. Reformatted coronal and sagittal images from the axial data. Dose modulation, iterative reconstruction, and/or weight based adjustment of the mA/kV was utilized to reduce the radiation dose to as low as reasonably achievable. Image quality: Motion/streaking artifact limits the evaluation of the skull base and posterior cranial fossa. FINDINGS: Parenchyma: 1. Few scatter and mildly compressing juxta cortical and periventricular white matter hypodensities, most likely corresponds to nonspecific chronic O's great changes. 2. No mass or hemorrhage. No CT evidence of acute territorial vascular insult. Extra-axial spaces:No abnormal density. No extra-axial fluid collections Brain volume: Normal for age. Ventricles: No hydrocephalus or displacement. Arteries: No density suggestive of thrombus. Dural sinuses: No abnormal density. Foramen magnum: No mass, Chiari malformation, or basilar invagination. Sella: No obvious mass. Paranasal/mastoid sinuses: Imaged portions unremarkable. Skull/Scalp: No lytic or blastic lesions. No fractures. IMPRESSION: 1. No acute intracranial hemorrhage or cortical infarct. 2. Mild white matter chronic microvascular ischemic changes. Signed by: Dr. Bina Valdez M.D. on 03/23/2020 2:14 PM
[2020-03-23 14:39] VITALS: BP 145/82
--- NOTE | 2020-03-23 14:40 | Emergency Department Note ---
History of Present Illnes History of Present Illness Chief Complaint: General Medicine Complaints History of Present Illness This is a 69 year old male . Chief Complaint Comment Reports that he is cold at night and he can feel the cold from the ceiling fan on his feet through the blankets, feels like he can't catch his breath and feels tired when he walks. Historian: Patient Arrival Mode: Car Onset (how long ago): day(s) (1) Location: dizziness weakness Quality: all over Severity: moderate Duration (how long): day(s) (1) Timing of current episode: constant Progression: waxing and waning Chronicity: new Context: Denies recent illness, Denies recent surgery, Denies recent immobilization, Denies recent travel, Denies trauma/injury, Denies new medications, Denies hx of DVT/PE, Denies non-compliance w/ medications, Denies other Relieving factors: none Exacerbating factors: none Associated symptoms: Reports denies other symptoms Treatments prior to arrival: none Past Medical/Family History Physician Review I have reviewed the patient's past medical and family history. Any updates have been documented here. Past Medical History Recent Fever: No Clinical Suspicion of Infectio: No New/Unexplained Change in Ment: No Past Medical History: Hypertension, Diabetes, Hyperlipedemia Past Surgical History: Appendectomy Other Surgery: Colonoscopy Social History Smoking Cessation: Never Smoker Counseling Performed: No Alcohol Use: None Any Illegal Drug Use: No Physically hurt or threatened: No Other Last Tetanus: UNK Any Pre-Existing Lines (PICC,: No Review of Systems Review of Systems Constitutional: Reports no symptoms EENTM: Reports no symptoms Cardiovascular: Reports no symptoms Respiratory: Reports no symptoms Gastrointestinal: Reports no symptoms Genitourinary: Reports no symptoms Musculoskeletal: Reports no symptoms Integumentary: Reports no symptoms Neurological: Reports as per HPI Psychological: Reports no symptoms Endocrine: Reports no symptoms Hematological/Lymphatic: Reports no symptoms Physical Exam Related Data Allergies: Coded Allergies: No Known Drug Allergies (Verified Allergy, Unknown, 08/18/09) Triage Vital Signs Vital Signs Date Time Temp Pulse Resp B/P (MAP) Pulse Ox O2 Delivery O2 Flow Rate FiO2 03/23/20 13:05 98.6 86 18 156/82 97 Room Air Vital signs reviewed: Yes Physical Exam CONSTITUTIONAL Constitutional: Present well-developed, Present well-nourished HENT HENT: Present normocephalic, Present atraumatic, Present oropharynx clear/moist, Present nose normal HENT L/R: Present left ext ear normal, Present right ext ear normal EYES Eyes: Reports PERRL, Reports conjunctivae normal NECK Neck: Present ROM normal PULMONARY Pulmonary: Present effort normal, Present breath sounds normal CARDIOVASCULAR Cardiovascular: Present regular rhythm, Present heart sounds normal, Present capillary refill normal, Present normal rate GASTROINTESTINAL Abdominal: Present soft, Present nontender, Present bowel sounds normal GENITOURINARY Genitourinary: Present exam deferred SKIN Skin: Present warm, Present dry MUSCULOSKELETAL Musculoskeletal: Present ROM normal NEUROLOGICAL Neurological: Present alert, Present oriented x 3, Present no gross motor or sensory deficits PSYCHOLOGICAL Psychological: Present mood/affect normal, Present judgement normal Results Laboratory Lab results reviewed: Yes Imaging Imaging results reviewed: Yes Procedures 12 Lead ECG Interpretation ECG Interpretation : ECG: ECG 1 Date: Mar 23, 2020 Time: 14:51 Rhythm: sinus rhythm Rate: normal BPM: 77 QRS axis: normal ST segments normal: Yes T waves normal: Yes Assessment & Plan Medical Decision Making MDM NEUROPATHY ANXIETY PE Reassessment Reassessment BETTER Assessment & Plan Final Impression: (1) Dyspnea (2) Diabetic neuropathy (3) Dizziness Depart Disposition: HOME, SELF-CARE Last Vital Signs Date Time Temp Pulse Resp B/P (MAP) Pulse Ox O2 Delivery O2 Flow Rate FiO2 03/23/20 13:05 98.6 86 18 156/82 97 Room Air Home Meds Reported Medications Nifedipine (NIFEDIPINE ER) 30 Mg Tab.er.24, BID 03/23/20 Losartan/Hydrochlorothiazide (LOSARTAN-HCTZ 100-25 MG TAB) 1 Each Tablet, DAILY 03/23/20 Tamsulosin Hcl* (FLOMAX*) 0.4 Mg Cap, 0.4 MG PO DAILY, #30 CAP 01/29/20 Clonidine Hcl (CLONIDINE HCL) 0.1 Mg Tablet, 0.1 MG PO HS, #60 TAB 06/13/19 Discontinued Reported Medications Losartan Potassium (LOSARTAN POTASSIUM) 100 Mg Tablet, 100 MG PO DAILY, TAB 06/13/19 Amlodipine Besylate (AMLODIPINE BESYLATE) 10 Mg Tablet, 10 MG PO DAILY, #30 TAB 06/13/19 Medications in the ED Potassium Chloride 40 meq NOW STAT PO Last administered on 03/23/20at 13:55; Admin Dose 40 MEQ; Start 03/23/20 at 13:46; Stop 03/23/20 at 13:51; Status DC Potassium Chloride 40 meq STK-MED ONCE PO ; Start 03/23/20 at 13:57; Stop 03/23/20 at 13:51; Status DC FÉLIX LUNA MD Mar 23, 2020 14:40
--- NOTE | 2020-03-23 16:02 | Diagnostic Imaging Report ---
EXAM: CT Chest WITH contrast- Pulmonary Embolism Protocol INDICATION: Shortness of breath COMPARISON: Chest radiograph of earlier the same day TECHNIQUE: Chest was scanned utilizing a multidetector helical scanner from the lung apex through the level of the diaphragm after administration of IV contrast. Thin section reconstructions were obtained with special concentration on the pulmonary arteries. Coronal and sagittal reformations were obtained. Pulmonary embolism protocol was performed. IV CONTRAST: 100 cc of Isovue 370 RADIATION DOSE: Total DLP: 334 mGy*cm Dose modulation, iterative reconstruction, and/or weight based adjustment of the mA/kV was utilized to reduce the radiation dose to as low as reasonably achievable. COMPLICATIONS: None FINDINGS: LINES/ TUBES: None. PULMONARY ARTERIES: No filling defect is identified within the pulmonary arteries to the segmental level. The subsegmental pulmonary arteries are not well opacified. Main pulmonary artery measures 2.6cm in diameter. No right heart strain. LUNGS AND AIRWAYS: The central airways are patent. No focal consolidation or pulmonary airspace edema. PLEURA: The pleural spaces are clear. HEART AND MEDIASTINUM: The thyroid gland is normal. No mediastinal, hilar or axillary lymphadenopathy. The heart is normal in size.. There is no pericardial effusion. Scattered atherosclerotic calcifications of the thoracic aorta, coronary arteries, and proximal great vessels. UPPER ABDOMEN: No acute findings in the upper abdomen. BONES: No acute osseous injury. SOFT TISSUES: Unremarkable. IMPRESSION: No pulmonary embolism. No focal pneumonia or pulmonary edema. Signed by: Olamide Feng MD on 03/23/2020 3:59 PM
== END 2020-03-23 16:33 | disposition home or self-care (01) ==
LOC: FSED 13:02
DX: R06.00 Dyspnea, unspecified (principal); R42 Dizziness and giddiness; E11.40 Type 2 diabetes mellitus with diabetic neuropathy, unspecified
CPT/HCPCS: 70450; 71045; 71260; 80053; 83880; 85025; 93005; 99284

== ENCOUNTER 2020-10-10 04:08 | Inpatient (IN) | payer MEDICARE ==
[2020-10-10] VITALS (8 sets, daily range): BP systolic 133–167; BP diastolic 72–92
[~2020-10-10] VITALS: Ht 170.2 cm; Wt 65.8 kg
[~2020-10-10 04:08] MED LIST changes: +LOSARTAN-HCTZ1 EAC1; +NIFEDIPINE ER30 M1
[2020-10-10] MEDS ORDERED: ASPIRIN 325 MG TAB PO ONE (04:45)
[2020-10-10] MEDS ORDERED: ASPIRIN 325 MG TAB ONE (04:58)
[2020-10-10] MEDS ORDERED: SODIUM CHLORIDE 0.9% 50ML 50 ML ONE (05:06)
[2020-10-10] MEDS ORDERED: IOPAMIDOL 370 MG/ML 200 ML INFUS..BTL INJ ONE (05:06)
[2020-10-10] MEDS ORDERED: POTASSIUM CHLORIDE 20 MEQ TAB CR PO STA (06:18)
[2020-10-10] MEDS ORDERED: HYDRALAZINE HCL 20 MG/ML VIAL ONE (06:29)
[2020-10-10] MEDS ORDERED: POTASSIUM CHLORIDE 20 MEQ TAB CR PO ONE (06:29)
[2020-10-10] MEDS ORDERED: SODIUM CHLORIDE FLUSH 10 ML SYR INJ PRN (06:30)
[2020-10-10] MEDS ORDERED: HYDRALAZINE HCL 20 MG/ML VIAL IV ONE (06:30)
[2020-10-10] MEDS ORDERED: ASPIRIN 81 MG CHEW TAB PO ONE (06:30)
[2020-10-10] MEDS ORDERED: ASPIRIN 325 MG TAB EC PO SCH (09:00)
[2020-10-10 10:27] LABS: BASOPHILS # (AUTO) 0.1 (0.0-0.1); BASOPHILS % 0.8 % (0.0-1.0); EOSINOPHILS % 0.3 % (0.0-6.0); HEMATOCRIT 35.6 % (38.2-49.6); HEMOGLOBIN 12.6 g/dL (14.0-18.0); LYMPHOCYTES # (AUTO) 2.2 (1.0-3.2); LYMPHOCYTES % 33.6 % (18.0-39.1); MEAN CORPUSCULAR HGB CONC 35.4 g/dL (31-35); MEAN CORPUSCULAR VOLUME 87.7 fL (81-99); MONOCYTES # (AUTO) 0.4 (0.2-0.8); MONOCYTES % 6.3 % (4.4-11.3); NEUTROPHILS # (AUTO) 3.8 (2.1-6.9); NEUTROPHILS % 58.7 % (38.7-80.0); PLATELET COUNT 234 x10e3/uL (140-360); RED BLOOD COUNT 4.06 x10e6/uL (4.3-5.7)
[2020-10-10 10:46] LABS: ALANINE AMINOTRANSFERASE 37 IU/L (0-55); ALBUMIN 3.6 g/dL (3.5-5.0); ALBUMIN/GLOBULIN RATIO 1.2 (0.8-2.0); ALKALINE PHOSPHATASE 60 IU/L (40-150); ANION GAP 12.5 mmol/L (8-16); BLOOD UREA NITROGEN 21 mg/dL (7-26); BUN/CREATININE RATIO 25 (6-25); CALCIUM 8.7 mg/dL (8.4-10.2); CARBON DIOXIDE 27 mmol/L (22-29); CHLORIDE 102 mmol/L (98-107); CREATININE, SERUM 0.84 mg/dL (0.72-1.25); EST GLOMERULAR FILTRATION RATE > 60 ML/MIN (60-); GLUCOSE 172 mg/dL (74-118); POTASSIUM 3.5 mmol/L (3.5-5.1); SODIUM 138 mmol/L (136-145)
[2020-10-10 11:06] LABS: THYROID STIMULATING HORMONE 1.399 uIU/mL (0.350-4.940)
[2020-10-10] MEDS: ENOXAPARIN SOD INJ 40 MG/0.4 ML SYR SC SCH (11:22)
[2020-10-10] MEDS: ASPIRIN 81 MG CHEW TAB PO SCH (11:22)
[2020-10-10 15:19] LABS: CREATINE KINASE MB 1.8 ng/mL (0-5.0)
[2020-10-11] VITALS (7 sets, daily range): BP systolic 124–167; BP diastolic 61–87
[2020-10-11] MEDS: ASPIRIN 81 MG CHEW TAB PO SCH (08:43)
[2020-10-11] MEDS: ENOXAPARIN SOD INJ 40 MG/0.4 ML SYR SC SCH (08:44)
[2020-10-11] MEDS: LOSARTAN POTASSIUM 100 MG TAB PO SCH (08:44)
[2020-10-11] MEDS: HYDROCHLOROTHIAZIDE 25 MG TAB PO SCH (08:44)
[2020-10-11 11:37] LABS: CREATINE KINASE 67 IU/L (30-200)
[2020-10-12] VITALS (7 sets, daily range): BP systolic 116–182; BP diastolic 71–92
[2020-10-12] MEDS: HYDROCHLOROTHIAZIDE 25 MG TAB PO SCH (05:58)
[2020-10-12] MEDS: LOSARTAN POTASSIUM 100 MG TAB PO SCH (05:58)
[2020-10-12] MEDS: ASPIRIN 81 MG CHEW TAB PO SCH (08:43)
[2020-10-12] MEDS: ENOXAPARIN SOD INJ 40 MG/0.4 ML SYR SC SCH (08:43)
[2020-10-12] MEDS ORDERED: HYDRALAZINE HCL 20 MG/ML VIAL IV ONE (10:15)
[2020-10-12] MEDS ORDERED: MIDAZOLAM HCL 2 MG/2 ML VIAL ONE (13:47)
[2020-10-12] MEDS ORDERED: HEPARIN SOD/SOD CHLORIDE 2,000 ML ONE (13:48)
[2020-10-12] MEDS ORDERED: IOPAMIDOL 370 MG/ML 200 ML INFUS..BTL INJ ONE (13:48)
[2020-10-12] MEDS ORDERED: LIDOCAINE HCL 2% LOCAL 20 ML VIAL ONE (13:48)
[2020-10-12] MEDS ORDERED: FENTANYL CITRATE/PF 100MCG/2 ML INJ ONE (13:48)
[2020-10-12] MEDS ORDERED: SODIUM CHLORIDE 0.9% 1000ML 1,000 ML ONE (13:48)
[2020-10-12] MEDS ORDERED: SODIUM CHLORIDE 0.9% 100 ML ONE (14:43)
[2020-10-12] MEDS ORDERED: PHENYLEPHRINE HCL 1% 10 MG/ML VIAL ONE (14:43)
[2020-10-12] MEDS ORDERED: ASPIRIN 325 MG TAB ONE (15:15)
[2020-10-12] MEDS ORDERED: CLOPIDOGREL BISULFATE 75 MG TAB ONE (15:15)
[2020-10-13] VITALS: BP 124/83
[2020-10-13 04:00] VITALS: BP 120/70
[2020-10-13] MEDS ORDERED: ASPIRIN CHEW81 MG PO (07:11)
[2020-10-13] MEDS ORDERED: ATORVASTATIN CA10 MG PO (07:11)
[2020-10-13] MEDS ORDERED: PLAVIX75 MG PO (07:12)
[2020-10-13 07:44] LABS: BASOPHILS # (AUTO) 0.1 (0.0-0.1); BASOPHILS % 0.6 % (0.0-1.0); EOSINOPHILS # (AUTO) 0.1 (0.0-0.4); EOSINOPHILS % 0.7 % (0.0-6.0); HEMATOCRIT 37.3 % (38.2-49.6); HEMOGLOBIN 12.9 g/dL (14.0-18.0); LYMPHOCYTES # (AUTO) 2.3 (1.0-3.2); LYMPHOCYTES % 27.5 % (18.0-39.1); MEAN CORPUSCULAR HEMOGLOBIN 30.9 pg (28-32); MEAN CORPUSCULAR HGB CONC 34.6 g/dL (31-35); MEAN CORPUSCULAR VOLUME 89.2 fL (81-99); MONOCYTES # (AUTO) 0.7 (0.2-0.8); MONOCYTES % 7.8 % (4.4-11.3); NEUTROPHILS # (AUTO) 5.3 (2.1-6.9); NEUTROPHILS % 63.2 % (38.7-80.0); PLATELET COUNT 245 x10e3/uL (140-360); RED BLOOD COUNT 4.18 x10e6/uL (4.3-5.7); RED CELL DISTRIBUTION WIDTH 13.3 % (11.7-14.4)
[2020-10-13 07:45] VITALS: BP 126/83
[2020-10-13 08:17] LABS: ANION GAP 14.9 mmol/L (8-16); BLOOD UREA NITROGEN 23 mg/dL (7-26); BUN/CREATININE RATIO 24 (6-25); CALCIUM 8.7 mg/dL (8.4-10.2); CARBON DIOXIDE 26 mmol/L (22-29); CHLORIDE 102 mmol/L (98-107); CREATININE, SERUM 0.94 mg/dL (0.72-1.25); EST GLOMERULAR FILTRATION RATE > 60 ML/MIN (60-); GLUCOSE 96 mg/dL (74-118); POTASSIUM 3.9 mmol/L (3.5-5.1); SODIUM 139 mmol/L (136-145)
[2020-10-13] MEDS: ASPIRIN 81 MG CHEW TAB PO SCH (08:39)
[2020-10-13] MEDS: HYDROCHLOROTHIAZIDE 25 MG TAB PO SCH (08:39)
[2020-10-13] MEDS: LOSARTAN POTASSIUM 100 MG TAB PO SCH (08:39)
[2020-10-13] MEDS: ENOXAPARIN SOD INJ 40 MG/0.4 ML SYR SC SCH (08:39)
[2020-10-13 08:59] VITALS: BP 126/83
[2020-10-13 11:12] VITALS: BP 132/79
== END 2020-10-13 12:14 | disposition home or self-care (01) | DRG 247 ==
LOC: FSED 04:33 → ERHOLD 06:18 → MED/SURG3 09:00 → OBSVTOIN 10-11 12:49 → INTOOBSV 10-12 05:48
PROVIDERS: ADMIT Internal Medicine; ATTEND Internal Medicine
PROC: 027034Z Dilation of Coronary Artery, One Artery with Drug-eluting Intraluminal Device, Percutaneous Approach (ICD-10-PCS; principal; 2020-10-11)
PROC: 4A023N7 Measurement of Cardiac Sampling and Pressure, Left Heart, Percutaneous Approach (ICD-10-PCS; 2020-10-11)
PROC: B2111ZZ Fluoroscopy of Multiple Coronary Arteries using Low Osmolar Contrast (ICD-10-PCS; 2020-10-11)
DX: I25.110 Atherosclerotic heart disease of native coronary artery with unstable angina pectoris (principal); E44.0 Moderate protein-calorie malnutrition; I16.0 Hypertensive urgency; I10 Essential (primary) hypertension; E78.5 Hyperlipidemia, unspecified; E11.9 Type 2 diabetes mellitus without complications; Z87.891 Personal history of nicotine dependence; I25.84 Coronary atherosclerosis due to calcified coronary lesion; Z20.822 Contact with and (suspected) exposure to COVID-19
CPT/HCPCS: 36415; 71260; 80048; 80053; 80061; 82550; 82553; 83036; 83880; 84443; 84484; 85025; 92928; 93005; 93458; 99152; 99153; 99284; C1725; C1760; C1769; C1874; C1887; G0378; J0360; J1650; J2001; J2250; J2370; J3010; J7030; J7050; Q9967; U0002

== ENCOUNTER 2020-10-26 12:54 | Emergency (ER) | payer MEDICARE ==
[~2020-10-26] VITALS: Ht 170.2 cm; Wt 65.8 kg
[~2020-10-26 12:54] MED LIST changes: +ASPIRIN CHEW81 MG PO; +ATORVASTATIN CA10 MG PO; +PLAVIX75 MG PO
[2020-10-26 13:19] LABS: BASOPHILS # (AUTO) 0.1 (0.0-0.1); BASOPHILS % 0.7 % (0.0-1.0); EOSINOPHILS # (AUTO) 0.1 (0.0-0.4); EOSINOPHILS % 0.6 % (0.0-6.0); HEMATOCRIT 35.7 % (38.2-49.6); HEMOGLOBIN 12.6 g/dL (14.0-18.0); LYMPHOCYTES # (AUTO) 2.4 (1.0-3.2); LYMPHOCYTES % 28.4 % (18.0-39.1); MEAN CORPUSCULAR HEMOGLOBIN 31.3 pg (28-32); MEAN CORPUSCULAR HGB CONC 35.3 g/dL (31-35); MEAN CORPUSCULAR VOLUME 88.6 fL (81-99); MONOCYTES # (AUTO) 0.6 (0.2-0.8); MONOCYTES % 6.6 % (4.4-11.3); NEUTROPHILS # (AUTO) 5.3 (2.1-6.9); NEUTROPHILS % 63.3 % (38.7-80.0); PLATELET COUNT 265 x10e3/uL (140-360); RED BLOOD COUNT 4.03 x10e6/uL (4.3-5.7); RED CELL DISTRIBUTION WIDTH 13.2 % (11.7-14.4)
[2020-10-26 13:40] LABS: ALANINE AMINOTRANSFERASE 42 IU/L (0-55); ALBUMIN 3.7 g/dL (3.5-5.0); ALBUMIN/GLOBULIN RATIO 0.9 (0.8-2.0); ALKALINE PHOSPHATASE 67 IU/L (40-150); ANION GAP 15.6 mmol/L (8-16); BLOOD UREA NITROGEN 24 mg/dL (7-26); BUN/CREATININE RATIO 27 (6-25); CALCIUM 8.5 mg/dL (8.4-10.2); CARBON DIOXIDE 23 mmol/L (22-29); CHLORIDE 106 mmol/L (98-107); CREATINE KINASE 56 IU/L (30-200); CREATININE, SERUM 0.89 mg/dL (0.72-1.25); EST GLOMERULAR FILTRATION RATE > 60 ML/MIN (60-); GLUCOSE 124 mg/dL (74-118); POTASSIUM 3.6 mmol/L (3.5-5.1); SODIUM 141 mmol/L (136-145)
[2020-10-26 15:11] VITALS: BP 161/77
== END 2020-10-26 15:10 | disposition home or self-care (01) ==
LOC: ER 13:08
DX: R00.2 Palpitations (principal); I10 Essential (primary) hypertension; E78.5 Hyperlipidemia, unspecified; I25.10 Atherosclerotic heart disease of native coronary artery without angina pectoris
CPT/HCPCS: 36415; 71045; 80053; 82550; 82553; 84443; 84484; 85025; 93005; 99283

== ENCOUNTER 2021-10-09 14:21 | Inpatient (IN) | payer MEDICARE ==
[~2021-10-09] VITALS: Ht 165.1 cm; Wt 81.6 kg
[2021-10-09 15:11] LABS: INR 0.84; PROTHROMBIN TIME 12.3 seconds (11.9-14.5)
[2021-10-09 15:12] LABS: PARTIAL THROMBOPLASTIN TIME 30.2 seconds (23.8-35.5)
[2021-10-09 15:13] LABS: BASOPHILS # (AUTO) 0.1 (0.0-0.1); BASOPHILS % 0.8 % (0.0-1.0); EOSINOPHILS % 0.3 % (0.0-6.0); HEMATOCRIT 35.1 % (38.2-49.6); HEMOGLOBIN 13.2 g/dL (14.0-18.0); LYMPHOCYTES # (AUTO) 1.9 (1.0-3.2); MEAN CORPUSCULAR HEMOGLOBIN 31.4 pg (28-32); MEAN CORPUSCULAR HGB CONC 37.6 g/dL (31-35); MEAN CORPUSCULAR VOLUME 83.4 fL (81-99); MONOCYTES # (AUTO) 0.8 (0.2-0.8); NEUTROPHILS # (AUTO) 3.4 (2.1-6.9); NEUTROPHILS % 55.1 % (38.7-80.0); PLATELET COUNT 268 x10e3/uL (140-360); RED BLOOD COUNT 4.21 x10e6/uL (4.3-5.7); RED CELL DISTRIBUTION WIDTH 12.7 % (11.7-14.4)
[2021-10-09 15:16] LABS: ALBUMIN 3.6 g/dL (3.5-5.0); ALBUMIN/GLOBULIN RATIO 0.9 (0.8-2.0); ANION GAP 20.3 mmol/L (8-16); CALCIUM 9.6 mg/dL (8.4-10.2); CREATININE, SERUM 0.9 mg/dL (0.72-1.25); MAGNESIUM 1.7 MG/DL (1.3-2.1)
[2021-10-09 15:22] LABS: CREATINE KINASE MB 3.4 ng/mL (0-5.0)
[2021-10-09 15:22] LABS: CLARITY,URINE CLEAR (CLEAR); COLOR,URINE COLORLESS (YELLOW)
[2021-10-09 15:23] LABS: KETONES,URINE NEGATIVE (NEGATIVE); LEUKOCYTE ESTERASE ,URINE SMALL (NEGATIVE); NITRITE,URINE NEGATIVE (NEGATIVE); PROTEIN,URINE DIPSTICK NEGATIVE (NEGATIVE); URINE UROBILINOGEN 0.2 mg/dL (0.2 - 1)
[2021-10-09 15:26] LABS: POTASSIUM 2.3 mmol/L (3.5-5.1)
[2021-10-09 15:27] LABS: AMPHETAMINES SCREEN,URINE NEGATIVE (NEGATIVE); BENZODIAZEPINES SCREEN,URINE NEGATIVE (NEGATIVE); PHENCYCLIDINE SCREEN,URINE NEGATIVE (NEGATIVE)
[2021-10-09 15:49] LABS: BACTERIA,URINE FEW /HPF
[2021-10-09] MEDS ORDERED: POTASSIUM CHLORIDE 20 MEQ TAB CR PO ONE (16:00)
[2021-10-09] MEDS ORDERED: POTASSIUM CHLORIDE 10MEQ/100ML 300 ML IV ONE (16:45)
[2021-10-09] MEDS ORDERED: Vancomycin IV 1 GM in SODIUM CHLORIDE 0.9% 250ML 250 ML IV ONE (16:45)
[2021-10-09] MEDS ORDERED: SODIUM CHLORIDE 0.9% 1000ML 1,000 ML IV STA (16:49)
[2021-10-09] MEDS: CEFTRIAXONE 1 GM in SODIUM CHLORIDE 0.9% 50ML 50 ML IV SCH ×2 (17:02→19:58)
[2021-10-09] MEDS ORDERED: SODIUM CHLORIDE 0.9% 500ML 500 ML ONE (17:03)
[2021-10-09] MEDS ORDERED: ONDANSETRON HCL INJ 2MG/ML 2ML 2 MG/ML VIAL IV PRN (17:15)
[2021-10-09 17:47] LABS: SALICYLATE < 5.0 mg/dL (0-30)
[2021-10-09] MEDS: SODIUM CHLORIDE 0.9% 1000ML 1,000 ML IV SCH (19:58)
[2021-10-09 20:58] LABS: CREATINE KINASE MB 2.5 ng/mL (0-5.0)
[2021-10-09 21:00] VITALS: BP 157/78
[2021-10-09] MEDS ORDERED: AMLODIPINE BESYL5 MG PO (23:40)
[2021-10-09] MEDS ORDERED: FLOMAX0.4 MG PO (23:40)
[2021-10-09] MEDS ORDERED: CARVEDILOL3.125 MG PO (23:41)
[2021-10-10] VITALS (9 sets, daily range): BP systolic 129–149; BP diastolic 67–76
[2021-10-10] MEDS: SODIUM CHLORIDE 0.9% 1000ML 1,000 ML IV SCH ×2 (06:35→20:29)
[2021-10-10 08:28] LABS: BASOPHILS % 0.5 % (0.0-1.0); EOSINOPHILS % 0.7 % (0.0-6.0); HEMATOCRIT 29.6 % (38.2-49.6); HEMOGLOBIN 10.7 g/dL (14.0-18.0); LYMPHOCYTES # (AUTO) 1.3 (1.0-3.2); LYMPHOCYTES % 30.3 % (18.0-39.1); MEAN CORPUSCULAR HEMOGLOBIN 31.1 pg (28-32); MEAN CORPUSCULAR HGB CONC 36.1 g/dL (31-35); MONOCYTES # (AUTO) 0.4 (0.2-0.8); NEUTROPHILS # (AUTO) 2.6 (2.1-6.9); NEUTROPHILS % 58.8 % (38.7-80.0); PLATELET COUNT 204 x10e3/uL (140-360); RED BLOOD COUNT 3.44 x10e6/uL (4.3-5.7); RED CELL DISTRIBUTION WIDTH 12.9 % (11.7-14.4)
[2021-10-10 08:54] LABS: ALBUMIN 2.5 g/dL (3.5-5.0); ANION GAP 12.4 mmol/L (8-16); CREATININE, SERUM 0.65 mg/dL (0.72-1.25); MAGNESIUM 1.5 MG/DL (1.3-2.1)
[2021-10-10 08:59] LABS: POTASSIUM 2.4 mmol/L (3.5-5.1)
[2021-10-10 09:00] LABS: CALCIUM 6.7 mg/dL (8.4-10.2)
[2021-10-10 09:30] LABS: CREATINE KINASE MB 2.2 ng/mL (0-5.0)
[2021-10-10] MEDS: CEFTRIAXONE 1 GM in SODIUM CHLORIDE 0.9% 50ML 50 ML IV SCH ×2 (09:34→20:29)
[2021-10-10] MEDS ORDERED: CALCIUM GLUC 1 G/50 ML NACL 50 ML IV ONE (10:30)
[2021-10-10] MEDS ORDERED: POTASSIUM CHLORIDE 20MEQ/100ML 100 ML IV ONE (10:30)
[2021-10-10] MEDS ORDERED: POTASSIUM CHLORIDE 20 MEQ TAB CR PO ONE (10:30)
[2021-10-10] MEDS ORDERED: POTASSIUM CHLORIDE 10MEQ/100ML 200 ML IV ONE (11:00)
[2021-10-10] MEDS ORDERED: ACETAMINOPHEN 325 MG TAB PO PRN (12:15)
[2021-10-10] MEDS ORDERED: FAMOTIDINE 20 MG TAB PO ONE (13:00)
[2021-10-10] MEDS: CARVEDILOL 3.125 MG TAB PO SCH (17:03)
[2021-10-10] MEDS: ATORVASTATIN 10 MG TAB PO SCH (20:29)
[2021-10-11] VITALS (7 sets, daily range): BP systolic 132–185; BP diastolic 67–87
[2021-10-11 05:25] LABS: BASOPHILS % 0.7 % (0.0-1.0); EOSINOPHILS # (AUTO) 0.1 (0.0-0.4); EOSINOPHILS % 2.1 % (0.0-6.0); HEMOGLOBIN 10.3 g/dL (14.0-18.0); LYMPHOCYTES # (AUTO) 2.5 (1.0-3.2); LYMPHOCYTES % 41.5 % (18.0-39.1); MEAN CORPUSCULAR HEMOGLOBIN 30.7 pg (28-32); MEAN CORPUSCULAR HGB CONC 35.5 g/dL (31-35); MEAN CORPUSCULAR VOLUME 86.6 fL (81-99); MONOCYTES # (AUTO) 0.5 (0.2-0.8); NEUTROPHILS # (AUTO) 2.9 (2.1-6.9); NEUTROPHILS % 47.2 % (38.7-80.0); PLATELET COUNT 211 x10e3/uL (140-360); RED BLOOD COUNT 3.35 x10e6/uL (4.3-5.7); RED CELL DISTRIBUTION WIDTH 13.1 % (11.7-14.4)
[2021-10-11 05:54] LABS: CHOL/HDL RATIO 2.4 (3.9-4.7)
[2021-10-11 05:56] LABS: ALBUMIN 2.7 g/dL (3.5-5.0); ALBUMIN/GLOBULIN RATIO 0.9 (0.8-2.0); ANION GAP 10.7 mmol/L (8-16); CALCIUM 8.1 mg/dL (8.4-10.2); CREATININE, SERUM 0.73 mg/dL (0.72-1.25)
[2021-10-11 06:00] LABS: POTASSIUM 2.7 mmol/L (3.5-5.1)
[2021-10-11 06:03] LABS: THYROID STIMULATING HORMONE 2.57 uIU/mL (0.350-4.940)
[2021-10-11] MEDS ORDERED: POTASSIUM CHLORIDE 20MEQ/100ML 200 ML IV ONE (07:00)
[2021-10-11] MEDS: AMLODIPINE BESYLATE 5 MG TAB PO SCH (08:20)
[2021-10-11] MEDS: CARVEDILOL 3.125 MG TAB PO SCH ×2 (08:20→16:01)
[2021-10-11] MEDS: CEFTRIAXONE 1 GM in SODIUM CHLORIDE 0.9% 50ML 50 ML IV SCH ×2 (08:21→20:42)
[2021-10-11] MEDS: TAMSULOSIN HCL 0.4 MG CAP PO SCH (08:24)
[2021-10-11] MEDS: SODIUM CHLORIDE 0.9% 1000ML 1,000 ML IV SCH ×2 (08:25→21:32)
[2021-10-11] MEDS ORDERED: CLOPIDOGREL BISULFATE 75 MG TAB PO SCH (09:00)
[2021-10-11] MEDS ORDERED: ASPIRIN 81 MG CHEW TAB PO SCH (09:00)
[2021-10-11] MEDS ORDERED: SODIUM CHLORIDE 0.9% 250ML 250 ML ONE (09:04)
[2021-10-11] MEDS ORDERED: IOPAMIDOL 370 MG/ML 200 ML INFUS..BTL INJ ONE (09:04)
[2021-10-11] MEDS: HYDRALAZINE HCL 20 MG/ML VIAL IV PRN ×2 (11:28→21:32)
[2021-10-11] MEDS: ATORVASTATIN 10 MG TAB PO SCH (20:41)
[2021-10-12] VITALS (8 sets, daily range): BP systolic 122–173; BP diastolic 70–86
[2021-10-12 05:14] LABS: BASOPHILS % 0.5 % (0.0-1.0); EOSINOPHILS # (AUTO) 0.1 (0.0-0.4); EOSINOPHILS % 1.7 % (0.0-6.0); HEMATOCRIT 29.9 % (38.2-49.6); HEMOGLOBIN 10.7 g/dL (14.0-18.0); LYMPHOCYTES # (AUTO) 2.2 (1.0-3.2); MEAN CORPUSCULAR HEMOGLOBIN 30.8 pg (28-32); MEAN CORPUSCULAR HGB CONC 35.8 g/dL (31-35); MEAN CORPUSCULAR VOLUME 86.2 fL (81-99); MONOCYTES # (AUTO) 0.5 (0.2-0.8); MONOCYTES % 8.1 % (4.4-11.3); NEUTROPHILS # (AUTO) 3.1 (2.1-6.9); NEUTROPHILS % 52.2 % (38.7-80.0); PLATELET COUNT 222 x10e3/uL (140-360); RED BLOOD COUNT 3.47 x10e6/uL (4.3-5.7); RED CELL DISTRIBUTION WIDTH 12.9 % (11.7-14.4)
[2021-10-12 05:40] LABS: ALBUMIN 2.9 g/dL (3.5-5.0); ALBUMIN/GLOBULIN RATIO 0.9 (0.8-2.0); ANION GAP 11.2 mmol/L (8-16); CREATININE, SERUM 0.72 mg/dL (0.72-1.25); MAGNESIUM 1.6 MG/DL (1.3-2.1); PHOSPHORUS 2.7 MG/DL (2.3-4.7); POTASSIUM 3.2 mmol/L (3.5-5.1)
[2021-10-12] MEDS: CARVEDILOL 3.125 MG TAB PO SCH ×2 (08:54→17:01)
[2021-10-12] MEDS: TAMSULOSIN HCL 0.4 MG CAP PO SCH (08:54)
[2021-10-12] MEDS: CEFTRIAXONE 1 GM in SODIUM CHLORIDE 0.9% 50ML 50 ML IV SCH (08:54)
[2021-10-12] MEDS: AMLODIPINE BESYLATE 5 MG TAB PO SCH (08:56)
[2021-10-12] MEDS: SODIUM CHLORIDE 0.9% 1000ML 1,000 ML IV SCH (11:34)
[2021-10-12] MEDS ORDERED: MAGNESIUM SULF 1GRAM/DEXTROSE 100 ML IV ONE (18:45)
[2021-10-12] MEDS ORDERED: MAGNESIUM SULFATE 2GM/50ML 50 ML IV ONE (19:45)
[2021-10-12] MEDS: ATORVASTATIN 10 MG TAB PO SCH (21:28)
[2021-10-12] MEDS ORDERED: POTASSIUM CHLORIDE 20 MEQ TAB CR PO ONE (22:00)
[2021-10-13] VITALS (9 sets, daily range): BP systolic 143–168; BP diastolic 76–92
[2021-10-13] MEDS: SODIUM CHLORIDE 0.9% 1000ML 1,000 ML IV SCH ×2 (00:29→16:46)
[2021-10-13] MEDS: HYDRALAZINE HCL 20 MG/ML VIAL IV PRN (06:10)
[2021-10-13 07:11] LABS: ANION GAP 9.8 mmol/L (8-16); CALCIUM 8.1 mg/dL (8.4-10.2); CREATININE, SERUM 0.69 mg/dL (0.72-1.25); MAGNESIUM 2.4 MG/DL (1.3-2.1); POTASSIUM 3.8 mmol/L (3.5-5.1)
[2021-10-13] MEDS: TAMSULOSIN HCL 0.4 MG CAP PO SCH (08:24)
[2021-10-13] MEDS: CARVEDILOL 3.125 MG TAB PO SCH ×2 (08:24→16:46)
[2021-10-13] MEDS ORDERED: AMLODIPINE BESYLATE 5 MG TAB PO SCH (09:00)
[2021-10-13] MEDS ORDERED: ONDANSETRON HCL 4 MG ORAL DISINTEGRATING TAB PO PRN (11:45)
[2021-10-13] MEDS: ATORVASTATIN 10 MG TAB PO SCH (16:46)
[2021-10-14] MEDS: SODIUM CHLORIDE 0.9% 1000ML 1,000 ML IV SCH (05:05)
[2021-10-14 05:11] VITALS: BP 168/84
[2021-10-14 05:20] VITALS: BP 161/77
[2021-10-14 05:59] LABS: BASOPHILS % 0.5 % (0.0-1.0); EOSINOPHILS # (AUTO) 0.1 (0.0-0.4); HEMATOCRIT 31.4 % (38.2-49.6); HEMOGLOBIN 11.1 g/dL (14.0-18.0); LYMPHOCYTES # (AUTO) 2.1 (1.0-3.2); LYMPHOCYTES % 33.4 % (18.0-39.1); MEAN CORPUSCULAR HEMOGLOBIN 30.7 pg (28-32); MEAN CORPUSCULAR HGB CONC 35.4 g/dL (31-35); MEAN CORPUSCULAR VOLUME 86.7 fL (81-99); MONOCYTES # (AUTO) 0.4 (0.2-0.8); MONOCYTES % 6.2 % (4.4-11.3); NEUTROPHILS # (AUTO) 3.6 (2.1-6.9); NEUTROPHILS % 58.6 % (38.7-80.0); PLATELET COUNT 215 x10e3/uL (140-360); RED BLOOD COUNT 3.62 x10e6/uL (4.3-5.7); RED CELL DISTRIBUTION WIDTH 12.8 % (11.7-14.4)
[2021-10-14 06:13] LABS: ANION GAP 9.6 mmol/L (8-16); CALCIUM 8.1 mg/dL (8.4-10.2); CREATININE, SERUM 0.71 mg/dL (0.72-1.25); POTASSIUM 3.6 mmol/L (3.5-5.1)
[2021-10-14] MEDS ORDERED: FUROSEMIDE INJ 10 MG/ML 4 ML VIAL ONE (07:04)
[2021-10-14 07:54] VITALS: BP 161/77
[2021-10-14 08:00] VITALS: BP 155/86
[2021-10-14] MEDS ORDERED: AMLODIPINE BESYLATE 10 MG TAB PO SCH (09:00)
[2021-10-14] MEDS: TAMSULOSIN HCL 0.4 MG CAP PO SCH (10:31)
[2021-10-14] MEDS: CARVEDILOL 3.125 MG TAB PO SCH (10:32)
[2021-10-14 11:13] VITALS: BP 162/80
== END 2021-10-14 15:41 | disposition home or self-care (01) | DRG 689 ==
LOC: ER 14:41 → ERHOLD 17:34 → MED/SURG3 18:18
PROVIDERS: ADMIT Internal Medicine; ATTEND Internal Medicine
DX: N13.6 Pyonephrosis (principal); J96.01 Acute respiratory failure with hypoxia; G93.41 Metabolic encephalopathy; E83.51 Hypocalcemia; E87.6 Hypokalemia; I10 Essential (primary) hypertension; E78.5 Hyperlipidemia, unspecified; R73.03 Prediabetes; I25.10 Atherosclerotic heart disease of native coronary artery without angina pectoris; D72.819 Decreased white blood cell count, unspecified; D64.9 Anemia, unspecified; N40.0 Benign prostatic hyperplasia without lower urinary tract symptoms; E83.42 Hypomagnesemia; Z90.49 Acquired absence of other specified parts of digestive tract; Z95.5 Presence of coronary angioplasty implant and graft; Z88.5 Allergy status to narcotic agent; Z20.822 Contact with and (suspected) exposure to COVID-19; N50.0 Atrophy of testis
CPT/HCPCS: 36415; 70450; 71045; 74178; 78708; 80048; 80053; 80061; 80307; 80320; 80329; 81001; 82550; 82553; 82948; 83036; 83735; 83880; 84100; 84443; 84484; 85025; 85379; 85610; 85730; 87040; 87086; 93005; 94799; 96361; 97139; 99285; A9562; J0360; J0696; J1940; J3370; J3475; J3480; J7030; J7040; J7050; Q9967; U0002

== ENCOUNTER 2021-10-15 16:45 | Emergency (ER) | payer MEDICARE ==
[~2021-10-15] VITALS: Ht 165.1 cm; Wt 81.6 kg
[~2021-10-15 16:45] MED LIST changes: +AMLODIPINE BESYL5 MG PO; +CARVEDILOL3.125 MG PO
[2021-10-15 17:53] LABS: BASOPHILS # (AUTO) 0.1 (0.0-0.1); BASOPHILS % 0.6 % (0.0-1.0); EOSINOPHILS # (AUTO) 0.1 (0.0-0.4); EOSINOPHILS % 0.6 % (0.0-6.0); HEMATOCRIT 34.8 % (38.2-49.6); HEMOGLOBIN 12.6 g/dL (14.0-18.0); LYMPHOCYTES # (AUTO) 2.4 (1.0-3.2); LYMPHOCYTES % 24.8 % (18.0-39.1); MEAN CORPUSCULAR HEMOGLOBIN 31.2 pg (28-32); MEAN CORPUSCULAR HGB CONC 36.2 g/dL (31-35); MEAN CORPUSCULAR VOLUME 86.1 fL (81-99); MONOCYTES # (AUTO) 0.7 (0.2-0.8); MONOCYTES % 7.3 % (4.4-11.3); NEUTROPHILS # (AUTO) 6.5 (2.1-6.9); NEUTROPHILS % 66.3 % (38.7-80.0); PLATELET COUNT 299 x10e3/uL (140-360); RED BLOOD COUNT 4.04 x10e6/uL (4.3-5.7); RED CELL DISTRIBUTION WIDTH 12.7 % (11.7-14.4)
[2021-10-15 18:19] LABS: ALBUMIN 3.7 g/dL (3.5-5.0); ANION GAP 12.3 mmol/L (8-16); CALCIUM 9.2 mg/dL (8.4-10.2); CREATININE, SERUM 0.81 mg/dL (0.72-1.25); POTASSIUM 3.3 mmol/L (3.5-5.1)
== END 2021-10-15 19:05 | disposition home or self-care (01) ==
LOC: ER 17:22
DX: R25.1 Tremor, unspecified (principal); I10 Essential (primary) hypertension; E11.9 Type 2 diabetes mellitus without complications; E78.5 Hyperlipidemia, unspecified; I25.10 Atherosclerotic heart disease of native coronary artery without angina pectoris; Z95.5 Presence of coronary angioplasty implant and graft
CPT/HCPCS: 36415; 80053; 85025; 99283

== ENCOUNTER 2024-04-09 10:37 | Emergency (ER) | payer MEDICARE ==
[~2024-04-09] VITALS: Ht 160 cm; Wt 54.0 kg
[2024-04-09] MEDS: TETANUS/DIPHTHERIA TOX ADULT 0.5 ML SYR IM ONE (12:01)
[2024-04-09] MEDS: LIDOCAINE 1% W/EPINEPHRINE 20 ML VIAL INJ ONE (12:06)
[2024-04-09 12:31] VITALS: PULSE 67; RESP 16; TEMP 97.9; O2SAT 98
== END 2024-04-09 13:29 | disposition short-term general hospital (02) ==
LOC: FSED 10:40
DX: S05.12XA Contusion of eyeball and orbital tissues, left eye, initial encounter (principal); S05.11XA Contusion of eyeball and orbital tissues, right eye, initial encounter; S06.5X0A Traumatic subdural hemorrhage without loss of consciousness, initial encounter; S01.412A Laceration without foreign body of left cheek and temporomandibular area, initial encounter; S51.812A Laceration without foreign body of left forearm, initial encounter; S51.012A Laceration without foreign body of left elbow, initial encounter; W01.0XXA Fall on same level from slipping, tripping and stumbling without subsequent striking against object, initial encounter; Y93.01 Activity, walking, marching and hiking; Y92.89 Other specified places as the place of occurrence of the external cause; I10 Essential (primary) hypertension; E11.9 Type 2 diabetes mellitus without complications; E78.5 Hyperlipidemia, unspecified
CPT/HCPCS: 70450; 80048; 85025; 85610; 90471; 90714; 99284